=== PATIENT | male | born 1945 | race Caucasian/White ===

== ENCOUNTER 2019-04-13 18:19 | Observation (INO) ==
[2019-04-13] MEDS ORDERED: ASPIRIN PO ONE (18:55)
--- NOTE | 2019-04-13 19:16 | Diag Imaging Result Doc PS360 ---
EXAM: CHEST-2 VIEWS - 04/13/2019 HISTORY: SOB TECHNIQUE: Chest two views COMPARISON: None. FINDINGS: There are artifacts from motion on the lateral view. Heart size appears mildly enlarged. There is mild prominence of central vascular markings. There is no dense consolidation, pleural effusion, or pneumothorax identified. IMPRESSION: Cardiomegaly with mild central vascular congestion. No discrete pneumonia. Electronically signed by Keyon Zavala 04/13/2019 7:14 PM
[2019-04-13 20:03] LABS: INR 1.22; PROTIME 15.6 Seconds (11.0-16.0)
[2019-04-13 20:04] LABS: PTT 27.4 Seconds (22.3-41.8)
[2019-04-13 20:20] LABS: BASO# 0.02 X1000 (0.0-0.2); BASO% 0.1 % (0.0-0.8); EOS# 0.02 X1000 (0.0-0.7); EOS% 0.1 % (0.0-10.0); HEMATOCRIT 41.9 % (42.0-52.0); HEMOGLOBIN 14.4 g/dL (14.0-18.0); LYMPH# 1.63 X1000 (1.2-3.4); LYMPH% 4.9 % (20.5-51.1); MCH 30.3 PG (27-31); MCHC 34.4 g/dL (33-37); MCV 88.2 FL (81-99); MONO# 3.36 X1000 (0.11-0.59); MONO% 10.1 % (1.7-9.3); MPV 9.5 FL (7.4-10.4); NEUT# 28.13 X1000 (1.4-6.5); NEUT% 84.8 % (42.2-75.2); PLT 243 X1000 (130-400); RBC 4.75 XMIL (4.7-6.1); RDW 14.3 % (11.5-14.5); WBC 33.16 X1000 (4.8-10.8)
[2019-04-13 20:29] LABS: ALB/GLOB RATIO 1.3; ALBUMIN 3.7 g/dL (3.5-5.0); CALCIUM 8.3 mg/dL (8.8-10.2); CREATININE 1.8 mg/dL (0.7-1.2); POTASSIUM 4.2 mmol/L (3.5-5.1); TOTAL BILIRUBIN 0.53 mg/dL (0.20-1.00); TOTAL PROTEIN 6.5 g/dL (6.3-8.3)
--- NOTE | 2019-04-13 20:47 | EKG Report ---
Test Performed on : 04/13/2019 7:15:33 PM Test Reason : SOB Blood Pressure : / mmHG Vent. Rate : 094 BPM Atrial Rate : 094 BPM P-R Int : 196 ms QRS Dur : 104 ms QT Int : 352 ms P-R-T Axes : 049 012 041 degrees QTc Int : 440 ms Normal sinus rhythm. with sinus arrhythmia. Normal ECG When compared with ECG of 03-APR-2019 10:14, [place] interval has decreased Unconfirmed Result
[2019-04-13 20:50] LABS: BANDS 6 % (0-1); LYMPHS 6 % (21-51); MONO 3 % (1-9); SEGS 82 % (42-75)
[2019-04-13 20:51] LABS: HYPOCHROM 1+
[2019-04-13 20:53] LABS: CK INDEX 2.9 (0.0-2.5); CK-MB 16.1 ng/mL (0.0-5.0)
[2019-04-13 21:30] LABS: URINE SOURCE CATH
[2019-04-13 21:33] LABS: BILIRUBIN URINE NEGATIVE (NEGATIVE); BLOOD URINE MODERATE (NEGATIVE); COLOR YELLOW; GLUCOSE URINE NEGATIVE (NEGATIVE); KETONE URINE NEGATIVE (NEGATIVE); LEUKOCYTES URINE MODERATE (NEGATIVE); NITRITE URINE POSITIVE (NEGATIVE); PROTEIN URINE TRACE mg/dL (NEGATIVE); TURBIDITY URINE HAZY (CLEAR); UR EPITHELIAL CELLS <10 /HPF (<10); URINE BACTERIA NEGATIVE /HPF; URINE RBC TNTC /HPF (<10); UROBILINOGEN URINE NORMAL (NORMAL)
[2019-04-13] MEDS ORDERED: LEVAQUIN 500 MG/D5W 500 MG/100 ML IVPB IV ONE (21:40)
[2019-04-13] MEDS ORDERED: ROCEPHIN 1 GM in NS 50 ML IV ONE (22:01)
--- NOTE | 2019-04-13 22:03 | PROVIDER DOCUMENTATION ---
This chart was entered by Haylie Herrera Scribe, acting as scribe for Rayshawn Little MD. HPI-Respiratory General - General Chief Complaint: Shortness of Breath Stated Complaint: DEHYDRATED, WHEEZING, SOB (POST-OP) Time Seen by Provider: 04/13/19 19:39 Source: patient Allergies/Adverse Reactions: Patient Allergies Allergy/AdvReac Type Severity Reaction Status Date / Time No Known Allergies Allergy Verified 04/11/19 10:05 Home Medications: Home Medication List Medication Instructions Recorded Confirmed Last Taken Type Cyanocobalamin (Vitamin B-12) 1,000 mcg PO QAM 09/24/17 04/11/19 04/10/19 History [Vitamin B-12] Metformin [Glucophage] 1 tab PO QAM 09/24/17 04/11/19 04/10/19 History Omeprazole 40 mg PO BID 09/24/17 04/11/19 04/10/19 History Tramadol HCl 50 mg PO DIRECTED 09/24/17 04/11/19 04/10/19 History Trazodone [Desyrel] 100 mg PO QHS 09/24/17 04/11/19 04/10/19 History Furosemide 20 mg PO DIRECTED 04/03/19 04/11/19 04/10/19 History Lisinopril/Hydrochlorothiazide 0.5 tab PO QAM 04/03/19 04/11/19 04/10/19 History [Lisinopril-Hctz 20-12.5 mg Tab] Multivitamin with Minerals 1 ea PO QAM 04/03/19 04/11/19 04/10/19 History [Multiple Vitamin] Cephalexin [Keflex] 500 mg PO BID #6 cap 04/11/19 Unknown Rx Phenazopyridine [Pyridium] 100 mg PO TID PRN #30 tab 04/11/19 Unknown Rx Tramadol HCl [Ultram] 50 mg PO TID PRN #10 tab 04/11/19 Unknown Rx - History of Present Illness-Resp Nature of Presenting Problem: 73 yowm presents w/family to er w/cc sob, wheezing, urinary retention and urgency starting yest. pt had recent prostate sx on sunday w/ Dr. Mi, family in room sts she removed cath yest and urinary symptoms began afterward. f dario also reports that pt has been disoriented, thought living room was restroom in home. no hx chf or copd. hx dm, htn, arthritis. no allergies. pt c/o buttocks pain, had small BM today, is on painkillers and stool softeners. Severity in ED: reports: mild Onset/Duration: reports: other (yest) Timing: reports: still present Context: reports: other (recent sx) Cough Quality/Degree: reports: no cough Current Respiratory Medication Therapy: Initiated none Modifying Factors: improves with: nothing Associated Symptoms: reports: shortness of breath, wheezing Recently seen or treated by another doctor?: Yes (sx sunday ) Review of Systems - Adult - REVIEW OF SYSTEMS - ADULT Constitutional: reports: see HPI, other (disoriented). denies: chills, fever, fatique Eyes: reports: no symptoms reported Ears, Nose, Mouth & Throat: reports: no symptoms reported Cardiovascular: reports: no symptoms reported Respiratory: reports: see HPI, shortness of breath, wheezing. denies: cough, he moptysis, pleurisy Gastrointestinal: reports: no symptoms reported Genitourinary: reports: see HPI, urinary retention, urgency. denies: dysuria, discharge, frequency, hematuria Musculoskeletal: reports: see HPI, other (buttocks pain). denies: bone pain, muscle aches, neck pain Integumentary: reports: no symptoms reported Neurological: reports: no symptoms reported Psychiatric: reports: no symptoms reported Endocrine: reports: no symptoms reported Hematologic/Lymphatic: reports: no symptoms reported Allergic/Immunologic: reports: no symptoms reported All Other Systems: Reviewed and Negative Past History - Adult - PAST MEDICAL HISTORY-ADULT Review of Records: reports: Old Records Reviewed, Nursing Assessment Review, Medications Reviewed, Social history reviewed & non-contributory. Major Childhood Illnesses: reports: denies history Cardiovascular: reports: HTN. denies: CHF Respiratory: reports: denies history. denies: COPD Gastrointestinal: reports: denies history Obstetrical/Gynecological: reports: denies history Genitourinary: reports: denies history Musculoskeletal: reports: arthritis Neurological: reports: CVA Endocrine/Immune: reports: Diabetes Other Conditions: reports: denies history - PRIOR SURGERIES/PROCEDURES Surgical/Procedure History: reports: recent surgery, joint replacement (knee), other (prostate) - IMMUNIZATION STATUS Childhood Immunizations: See Nurse Assessment Flu Vaccine: See Nurse Assessment - FAMILY HISTORY Family History: reviewed, not pertinent - SOCIAL HISTORY Smoking: other (former smoker) Substance Use: none/never Physical Exam-General - PHYSICAL EXAM-ADULT Initial Vital Signs Reviewed: Yes - CONSTITUTIONAL General Appearance: alert, no apparent distress, obese. negative: cachetic, anxious, combative - EYES Eyes: PERRL/EOMI - HEAD, EARS, NOSE, MOUTH & THROAT HENMT: normocephalic/atraumatic, moist mucous membranes - NECK Neck: non-tender, full range of motion, supple, normal inspection - RESPIRATORY Respiratory: chest non-tender, normal breath sounds, no pleuratic chest pain, no respiratory distress, no accessory muscle use, rhonchi (left side), wheezing (left side). negative: lungs clear - CARDIOVASCULAR Cardiovascular: normal peripheral pulses, regular rate, rhythm - GASTROINTESTINAL (ABDOMEN) Abdominal Exam: normal bowel sounds, no organomegaly, no pulsatile mass, distended, tenderness (suprapubic, ruq on palp). negative: non tender, soft - MUSCULOSKELETAL Back Exam: normal inspection Extremity: normal range of motion, non-tender, normal inspection - SKIN Integumentary: normal color, normal turgor, warm/dry - NEUROLOGIC Neurologic: grossly normal, no motor/sensory deficits - PSYCHIATRIC Psych/Mental Status: normal mood/affect, normal thought content, normal thought process, oriented x 3, other (pt able to answer questions approprieately). negative: disoriented x 3, anxious, paranoid - HEART Score HEART Score: History: Moderately Suspicious HEART Score: ECG: Non-Specific Repolarization Disturbance/LBBB/PM HEART Score: Age: > or = 65 Years HEART Score: Risk Factors for Atherosclerotic Disease: 1 or 2 Risk Factors HEART Score: Troponin: < or = Normal Limit Total HEART Score:: 5 Progress - PLAN OF CARE/RESULTS Progress/Plan/Lab Results: Vital Signs - 8 hr 04/13/19 18:46 Temperature 99.6 F Pulse Rate 101 H Respiratory Rate 24 Blood Pressure 204/92 O2 Sat by Pulse Oximetry 94 L Laboratory Results - last 24 hr 04/13/19 04/13/19 04/13/19 19:20 19:29 19:29 WBC RBC Hgb Hct MCV MCH MCHC RDW Std Deviation Plt Count MPV Neut % (Auto) Lymph % (Auto) [place] % (Auto) Eos % (Auto) Baso % (Auto) Neut # (Auto) Lymph # (Auto) [place] # (Auto) Eos # (Auto) Baso # (Auto) Segmented Neutrophils Band Neutrophils Lymphocytes Monocytes Metamyelocytes Pathologist Review Hypochromia PT INR PTT (Actin FS) Sodium 124 L Potassium 4.2 Chloride 85 L Carbon Dioxide 20 L Anion Gap 19 BUN 31 H Creatinine 1.8 H Estimated GFR/1.73 m2 37 BUN/Creatinine Ratio 17 Glucose 184 H POC Glucose 171 H Calculated Osmolality 261 Calcium 8.3 L Total Bilirubin 0.53 AST 29 ALT 19 Alkaline Phosphatase 71 Creatine Kinase 556 H Creatine Kinase Index 2.9 H CK-MB (CK-2) 16.10 H Troponin T High Sens [id number] Pept 349 H Total Protein 6.5 Albumin 3.7 Globulin 2.8 Albumin/Globulin Ratio 1.3 Plasma Lactate Urine Source Urine Color Urine Turbidity Urine pH Ur Specific [place] Urine Protein Ur Glucose (Stick) Ur Ketones (Stick) Urine Blood Urine Nitrite Urine Bilirubin Urobilinogen Dipstick Urine Leukocytes Urine WBC (Auto) Urine RBC (Auto) U Epithel Cells (Auto) Urine Bacteria (Auto) 04/13/19 04/13/19 04/13/19 19:29 19:29 19:29 WBC 33.16 H RBC 4.75 Hgb 14.4 Hct 41.9 L MCV 88.2 MCH 30.3 MCHC 34.4 RDW Std Deviation 14.3 Plt Count 243 MPV 9.5 Neut % (Auto) 84.8 H Lymph % (Auto) 4.9 L [place] % (Auto) 10.1 H Eos % (Auto) 0.1 Baso % (Auto) 0.1 Neut # (Auto) 28.13 H Lymph # (Auto) 1.63 [place] # (Auto) 3.36 H Eos # (Auto) 0.02 Baso # (Auto) 0.02 Segmented Neutrophils 82 H Band Neutrophils 6 H Lymphocytes 6 L Monocytes 3 Metamyelocytes 3.0 Pathologist Review Hypochromia 1+ PT 15.6 INR 1.22 PTT (Actin FS) 27.4 Sodium Potassium Chloride Carbon Dioxide Anion Gap BUN Creatinine Estimated GFR/1.73 m2 BUN/Creatinine Ratio Glucose POC Glucose Calculated Osmolality Calcium Total Bilirubin AST ALT Alkaline Phosphatase Creatine Kinase Creatine Kinase Index CK-MB (CK-2) Troponin T High Sens 17 [id number] Pept Total Protein Albumin Globulin Albumin/Globulin Ratio Plasma Lactate Urine Source Urine Color Urine Turbidity Urine pH Ur Specific [place] Urine Protein Ur Glucose (Stick) Ur Ketones (Stick) Urine Blood Urine Nitrite Urine Bilirubin Urobilinogen Dipstick Urine Leukocytes Urine WBC (Auto) Urine RBC (Auto) U Epithel Cells (Auto) Urine Bacteria (Auto) 04/13/19 04/13/19 20:52 21:14 WBC RBC Hgb Hct MCV MCH MCHC RDW Std Deviation Plt Count MPV Neut % (Auto) Lymph % (Auto) [place] % (Auto) Eos % (Auto) Baso % (Auto) Neut # (Auto) Lymph # (Auto) [place] # (Auto) Eos # (Auto) Baso # (Auto) Segmented Neutrophils Band Neutrophils Lymphocytes Monocytes Metamyelocytes Pathologist Review Hypochromia PT INR PTT (Actin FS) Sodium Potassium Chloride Carbon Dioxide Anion Gap BUN Creatinine Estimated GFR/1.73 m2 BUN/Creatinine Ratio Glucose POC Glucose Calculated Osmolality Calcium Total Bilirubin AST ALT Alkaline Phosphatase Creatine Kinase Creatine Kinase Index CK-MB (CK-2) Troponin T High Sens [id number] Pept Total Protein Albumin Globulin Albumin/Globulin Ratio Plasma Lactate 1.4 Urine Source CATH Urine Color YELLOW Urine Turbidity HAZY Urine pH 6.0 Ur Specific [place] 1.010 Urine Protein TRACE A Ur Glucose (Stick) NEGATIVE Ur Ketones (Stick) NEGATIVE Urine Blood MODERATE A Urine Nitrite POSITIVE A Urine Bilirubin NEGATIVE Urobilinogen Dipstick NORMAL Urine Leukocytes MODERATE A Urine WBC (Auto) 10-20 A Urine RBC (Auto) TNTC A U Epithel Cells (Auto) <10 Urine Bacteria (Auto) NEGATIVE Orders Category Date Time Status Cardiac Monitoring DIRECTED Care 04/13/19 18:55 Active Hair Cath Insertion ORDERED Care 04/13/19 19:51 Active NEWS Score 2-4:Order NEWS Lactate Series NOW Care 04/13/19 18:54 Active Oxygen Therapy- ED Nursing DIRECTED Care 04/13/19 18:55 Active Saline Loc NOW Care 04/13/19 18:55 Active CHEST-2 VIEWS [RAD] Stat Exams 04/13/19 18:55 Completed BLOOD CULTURE [BLDCUL] Stat Lab 04/13/19 20:55 Ordered CBC WITH ELECTRONIC DIFF [HEME] Stat Lab 04/13/19 19:29 Completed CK PROFILE [SP CHEM] Stat Lab 04/13/19 19:29 Completed COMPREHENSIVE METABOLIC PANEL [CHEM] Stat Lab 04/13/19 19:29 Completed LACTATE, PLASMA [CHEM] Lab 04/13/19 20:52 Completed LACTATE, PLASMA [CHEM] Lab 04/13/19 22:00 Uncollected LACTATE, PLASMA [CHEM] Lab 04/14/19 01:00 Uncollected PRO B-NATRIURETIC PEPTIDE Stat Lab 04/13/19 19:29 Completed PROTIME WITH INR [COAG] Stat Lab 04/13/19 19:29 Completed PTT [COAG] Stat Lab 04/13/19 19:29 Completed TROPONIN T HIGH SENSITIVITY Stat Lab 04/13/19 19:29 Completed UA NIMS W/REFLEX CULT [URINALYSIS] Stat Lab 04/13/19 21:14 Completed Aspirin Med 04/13/19 18:55 Discontinued 325 mg PO NOW ONE CefTRIAXONE [Rocephin] 1 gm Med 04/13/19 22:01 Active 0.9% Sodium Chloride Inj [Ns] 50 ml IV NOW Levofloxacin 500 mg/D5w [Levaquin 500 mg/D5w] Med 04/13/19 21:40 Active 500 mg in 100 ml IV NOW CP/SOB/Palp >45 yrs of Age Stat Oth 04/13/19 18:55 Ordered EKG [EKG] Stat Ther 04/13/19 18:55 Draft Result Diagrams: 04/13/19 19:29 04/13/19 19:29 - EKG 1 Time of EKG reading by physician:: 19:15 EKG Read and Signed by:: Rayshawn Little EKG Interpretation (*Must complete 3 of following elements*): Normal Rate: 94 Rhythm: NSR w/ SA [place]: normal QRS: normal VT Interval: normal ST Wave: normal - XRAY 1 XRAY Study: Chest Impression: Abnormal, See EMR Report ( EXAM: CHEST-2 VIEWS - 04/13/2019 HISTORY: SOB TECHNIQUE: Chest two views COMPARISON: None. FINDINGS: There are artifacts from motion on the lateral view. Heart size appears mildly enlarged. There is mild prominence of central vascular markings. There is no dense consolidation, pleural effusion, or pneumothorax identified. IMPRESSION: C ardiomegaly with mild central vascular congestion. No discrete pneumonia. Electronically signed by Keyon Zavala 04/13/2019 7:14 PM 04/13/19 191 Interpreting Physician: Keyon Zavala MD Dictated Date/Time: 04/13/191911) Comparison with other Films: no prior study - CONSULTS/PCP/HOSPITALIST Notification #1 *Consult/PCP/Hospitalist*: Dr. Rubio Time Discussed: 21:45 Consult Disposition: other (refer to urologist.) #2 Consult: Dr. Watts Time Discussed: 21:52 Consult Disposition: Admit Departure - Departure Date of Disposition Decision: 04/13/19 Time of Disposition Decision: 21:58 DIAGNOSIS: Hyponatremia, Urinary retention, Leukocytosis, UTI (urinary tract infection), Renal insufficiency Disposition: ADMITTED INPATIENT 09 Certified Medical Emergency: Emergent Condition: Fair Referrals and Follow-Ups: Gunner Donato MD [Primary Care Provider] - - Critical Care Note This patient required my direct & personal management of CC.: No Attestation - Physician/ ALESSANDRA Attestation Patient care was provided by Advanced Practice Provider:: No The physician spent face to face time with patient:: Yes Advanced Practice Provider documentation review:: Supervising physician onsite and consulted in the evaluation and care of this patient. The physician did have a face to face encounter with the patient. This chart was documented by the indicated scribe, (Haylie Herrera, Maggie) and accurately reflects the services I performed and decisions made by me, Rayshawn Little MD, as attested by the provider's signature.
[2019-04-13] MEDS ORDERED: ZOFRAN IV PRN (23:22)
[2019-04-14] MEDS: NS 1,000 ML IV SCH ×3 (00:05→20:25)
[2019-04-14] MEDS: INVANZ 1 GM/NS 1 GM/50 ML IVPB IV SCH ×2 (00:05→23:08)
--- NOTE | 2019-04-14 01:08 | HISTORY AND PHYSICAL ---
PRIMARY CARE PHYSICIAN: Unknown. CHIEF COMPLAINT: Suprapubic pain, not feeling well. HISTORY OF PRESENTING ILLNESS: A 73-year-old male with a history of diabetes mellitus type 2, hypertension, who recently underwent laser prostate surgery last week and was sent home with Hair, presented to emergency department with complaint of worsening suprapubic pain. As per patient, his took out his Hair this Sunday and after that he was unable to urinate. He is brought to the emergency department. His case was discussed with Urology, who recommended reinserting the Hair and also treatment for his UTI. Due to his presenting symptoms, he will require admission for further management. At the time of my examination, patient denied any headache, fever, chills, chest pain, shortness of breath or weight changes, but complained of suprapubic pain and unable to urinate. PAST MEDICAL HISTORY: Includes diabetes mellitus type 2, hypertension. PAST SURGICAL HISTORY: Left knee replacement, appendectomy, cataract surgery, and recent prostate surgery. ALLERGIES: No known drug allergies. CURRENT MEDICATIONS: Include Lasix 20 mg p.o. daily, lisinopril/hydrochlorothiazide 20/12.5 one p.o. daily, multivitamins 1 tablet daily, omeprazole 40 mg p.o. daily, trazodone 100 mg p.o. at bedtime, metformin 500 mg p.o. daily. SOCIAL HISTORY: He is a former smoker. No history of alcohol or illicit drug use. FAMILY HISTORY: No history of coronary artery disease. REVIEW OF SYSTEMS: Fourteen point review of systems is as listed in HPI. Other systems negative. PHYSICAL EXAMINATION: GENERAL: Cooperative, friendly male. He is resting more comfortably now. VITAL SIGNS: Temperature 99.6 degrees, pulse 101, respirations 24, blood pressure 204/92, repeat was 157/84. HEENT: Atraumatic, normocephalic. Extraocular movements intact. PERRLA. NECK: No masses. CHEST: Clear to auscultation. CARDIOVASCULAR: Regular rate and rhythm. ABDOMEN: Soft. Positive bowel sounds. EXTREMITIES: No edema. NEUROLOGIC: He is awake, alert, oriented x3. GENITOURINARY: There is some bladder distention. SKIN: Warm. LABORATORIES AND STUDIES: WBCs 33.16, hemoglobin 14.4, hematocrit 41.9, platelets 243,000. Sodium 124, potassium 4.2, chloride 85, CO2 is 20, BUN is 31, creatinine is 1.8, glucose is 184. Chest x-ray, no discrete pneumonia. ASSESSMENT: A 73-year-old male with a history of diabetes mellitus type 2 and hypertension, who had presented to emergency department with complaining of difficulty voiding. He recently underwent a prostate surgery and had his Hair catheter taken out on Sunday. He developed difficulty urinating and subsequently had come to the emergency department. In the ED, he was evaluated. A Hair catheter was inserted and he was started on IV antibiotics and he need admission for further management. 1. Acute urinary retention. 2. Complicated urinary tract infection. 3. Acute kidney injury. 4. Hyponatremia. 5. Diabetes mellitus type 2. 6. Hypertension. PLAN: 1. We will admit patient to medical floor with telemetry. 2. Continue with Hair catheter. 3. Consult Urology. 4. We will check urine cultures. Start patient on IV antibiotics. 5. We will continue with IV fluids and monitor renal function. 6. We will monitor blood glucose and put patient on sliding scale insulin regimen. 7. Monitor blood pressure. Resume antihypertensive agent. 8. We will check his electrolytes. 9. We will put patient on DVT prophylaxis with SCD. 10. We will continue to follow, reassess and make further recommendation based on patient's clinical course. cc: Eben Rubio MD
[2019-04-14] MEDS: HUMULIN R SUBQ SCH ×4 (06:33→20:25)
--- NOTE | 2019-04-14 07:58 | CONSULTATION ---
DATE OF CONSULTATION: 04/14/2019 CHIEF COMPLAINT: Suprapubic pain and urinary retention. HISTORY OF PRESENT ILLNESS: Mr. Max is a 73-year-old with history of diabetes type 2, hypertension, CVA, and BPH who underwent GreenLight laser resection of the prostate on Sunday with Dr. Donato. The patient's Hair catheter was removed on Sunday at home. The patient had difficulty with urination and presented to ED last night complaining of shortness of breath and worsening suprapubic pain. Catheter was removed on Sunday, and he states that he only was able to void a very small amount. As his pain worsened, he presented to the hospital for evaluation. The patient had obvious suprapubic distention, and catheter inserted with over 1500 mL of urine drained. Urology was consulted at that time, and recommended admission due to elevated white blood cell count at 33,000. Urinalysis showed blood and leukocytes with no bacteria present. The patient's creatinine was elevated at 1.8. This morning the patient denies any fevers, chills, nausea, or vomiting. He feels like his shortness of breath has significantly improved. Denies any suprapubic tenderness. Urethral catheter has been draining well with clear yellow urine. Overall, patient feels well and is asking about going home. PAST MEDICAL HISTORY: 1. Type 2 diabetes. 2. Hypertension. 3. Osteoarthritis. 4. History of CVA. 5. BPH. PAST SURGICAL HISTORY: 1. Left knee replacement. 2. Appendectomy. 3. Cataract surgery. 4. GreenLight resection of prostate. ALLERGIES: No known drug allergies. MEDICATIONS: 1. Keflex 500 mg p.o. b.i.d. 2. Vitamin B12 1000 mcg p.o. in the morning. 3. Lasix 20 mg p.o. as needed. 4. Lisinopril/hydrochlorothiazide 20/12.5 mg take half tablet in the morning. 5. Metformin 1 tablet in the morning. 6. Multivitamin. 7. Omeprazole 40 mg b.i.d. 8. Pyridium 100 mg t.i.d. 9. Tramadol 50 mg p.o. 10. Trazodone 100 mg p.o. SOCIAL HISTORY: He is a former smoker. Denies any alcohol or illicit drug use. FAMILY HISTORY: Denies family history of malignancy. REVIEW OF SYSTEMS: A 12 point review of systems performed with all pertinent positives and negatives in HPI. PHYSICAL EXAMINATION: Vital Signs: Temperature 97.6, heart rate 83, blood pressure 125/53, and oxygen saturation 96% on room air. General: No acute distress. Resting comfortably in bed. Alert and oriented x3. HEENT: Normocephalic, atraumatic. Pupils equal, round, and reactive to light. Poor dentition. Neck: Trachea midline with no obvious masses. Respiratory: Good respiratory effort without audible wheezing or rales. Cardiovascular: Regular rate and rhythm. Abdomen: Soft and nontender. : No suprapubic tenderness. No CVA tenderness. Urethral catheter in place draining clear yellow urine. Normal phallus with orthotopic meatus. Skin: No obvious skin lesions or rashes. Musculoskeletal: Moving all extremities. LABORATORY: White blood cell count in the emergency room last night was 33.2, hemoglobin 14.4, hematocrit 41.9, and platelets 243,000. Sodium 124, potassium 4.2, chloride 85, bicarb 20, BUN 31, creatinine 1.8, glucose 184, and creatine kinase 556. Creatinine count index is elevated at 2.9 with a CK-MB of 16.1. Urinalysis shows moderate amount of blood, and 10 to 20 of white blood cells that is nitrite positive, patient states he is on Pyridium, urinalysis was negative for bacteria. ASSESSMENT AND PLAN: Mr. Max is a 73-year-old with history of BPH, hypertension, type 2 diabetes, osteoarthritis, and prior CVA, who presents in consultation regarding urinary retention postoperatively. Patient underwent a GreenLight laser of the prostate by Dr. Donato on Sunday of last week, and has had issues with retention after catheter removed by his . Catheter was reinserted in the ED last night and is draining clear, yellow urine. Denies any flank or abdominal pain today. The catheter has drained over 4.5 L of urine so far, which is clear yellow without any clots or sediment. We will keep indwelling catheter in at this time. I would follow up his morning blood work. His white blood count was significantly elevated on presentation and seems out of proportion to a urinary tract infection alone. Uncertain what led to this as he has not had any fevers or chills. His urinalysis showed no bacteria. He has been on Keflex postoperatively. We will continue to monitor urine cultures. Please call with questions or concerns. cc: Mainor Watts MD [facility]
[2019-04-14 08:54] LABS: BASO# 0.02 X1000 (0.0-0.2); BASO% 0.1 % (0.0-0.8); EOS# 0.17 X1000 (0.0-0.7); EOS% 0.7 % (0.0-10.0); HEMATOCRIT 39.6 % (42.0-52.0); HEMOGLOBIN 13.2 g/dL (14.0-18.0); IMM GRAN# 0.18 X1000 (0.0-0.04); IMM GRAN% 0.8 % (0.0-0.5); LYMPH# 1.85 X1000 (1.2-3.4); LYMPH% 7.7 % (20.5-51.1); MCH 30.1 PG (27-31); MCHC 33.3 g/dL (33-37); MCV 90.2 FL (81-99); MONO# 2.63 X1000 (0.11-0.59); MPV 9.1 FL (7.4-10.4); NEUT# 19.15 X1000 (1.4-6.5); NEUT% 79.7 % (42.2-75.2); PLT 235 X1000 (130-400); RBC 4.39 XMIL (4.7-6.1); RDW 14.2 % (11.5-14.5)
[2019-04-14 09:02] LABS: AGAP 10; BUN 24 mg/dL (8-22); CALCIUM 9.3 mg/dL (8.8-10.2); CHLORIDE 99 mmol/L (98-107); COSMO 284; CREATININE 1.1 mg/dL (0.7-1.2); ESTIMATED GFR > 60; GLUCOSE 114 mg/dL (70-104); POTASSIUM 4.5 mmol/L (3.5-5.1); SODIUM 140 mmol/L (136-145); TCO2 31 mmol/L (25-35)
[2019-04-14 09:18] LABS: BANDS 4 % (0-1); LYMPHS 4 % (21-51); MONO 8 % (1-9); SEGS 82 % (42-75)
[2019-04-14] MEDS: TYLENOL PO PRN ×2 (15:52→23:07)
--- NOTE | 2019-04-14 18:22 | PROGRESS NOTE ---
DATE: 04/14/2019 SUBJECTIVE: Mr. Max came in with suprapubic pain, not feeling well. He is a patient of Dr. Donato's. A 73-year-old with a history of diabetes mellitus type 2, hypertension, recently underwent laser prostate surgery last week, was sent home with Hair catheter. Presented to the emergency department with complaint of worsening suprapubic pain. As per patient and his , took out his Hair catheter Sunday after he had been unable to urinate. He was brought to the emergency room. His case was discussed with Urology. It was recommended to reinsert the Hair and treatment for urinary tract infection. So he was admitted to the hospital. He states he is feeling better. He wanted know if he could get the catheter out. I told him that it is probably going to need to be a decision Urology makes. He is feeling better, quite a bit better. OBJECTIVE: Vital signs: Temp 98.5 degrees, pulse 88, respirations 19, blood pressure 131/89. HEENT: Pupils are equal and round. Lungs: Clear in all lung pearl. Cardiovascular: Regular rhythm and rate without murmur or S3. Abdomen: Soft. Skin: Warm and dry. Urine output is 7200 mL. ASSESSMENT AND PLAN: A 73-year-old with a history of benign prostatic hypertrophy, hypertension, diabetes mellitus, osteoarthritis, and prior cerebrovascular accident. He had some urinary retention on presentation postoperatively. Underwent GreenLight laser of the prostate per Dr. Donato on Sunday of last week. Had issues with retention after Hair catheter was removed. Catheter was reinserted and draining clear urine. Denies any flank pain. He has put out quite a bit of urine. This is clear without any clots. Blood count was significantly elevated, so treating for urinary tract infection. CURRENT ORDERS: He is getting ertapenem 1 g IV q.24 hours and Zofran p.r.n. nausea, normal saline at 100 mL an hour. cc: Emerson Pulido MD
[2019-04-15] MEDS: HUMULIN R SUBQ SCH ×4 (06:28→22:58)
[2019-04-15] MEDS: TYLENOL PO PRN ×3 (06:43→23:07)
[2019-04-15] MEDS ORDERED: PYRIDIUM PO PRN (11:25)
[2019-04-15 12:23] LABS: BASO# 0.05 X1000 (0.0-0.2); BASO% 0.2 % (0.0-0.8); EOS# 0.07 X1000 (0.0-0.7); EOS% 0.3 % (0.0-10.0); HEMATOCRIT 43.1 % (42.0-52.0); HEMOGLOBIN 14.1 g/dL (14.0-18.0); IMM GRAN# 0.25 X1000 (0.0-0.04); LYMPH# 2.76 X1000 (1.2-3.4); LYMPH% 11.4 % (20.5-51.1); MCH 29.6 PG (27-31); MCHC 32.7 g/dL (33-37); MCV 90.5 FL (81-99); MONO# 2.59 X1000 (0.11-0.59); MONO% 10.7 % (1.7-9.3); MPV 9.1 FL (7.4-10.4); NEUT# 18.45 X1000 (1.4-6.5); NEUT% 76.4 % (42.2-75.2); PLT 260 X1000 (130-400); RBC 4.76 XMIL (4.7-6.1); RDW 14.3 % (11.5-14.5); WBC 24.17 X1000 (4.8-10.8)
[2019-04-15 12:34] LABS: AGAP 14; BUN 16 mg/dL (8-22); CHLORIDE 97 mmol/L (98-107); COSMO 274; CREATININE 0.7 mg/dL (0.7-1.2); ESTIMATED GFR > 60; GLUCOSE 114 mg/dL (70-104); POTASSIUM 3.9 mmol/L (3.5-5.1); SODIUM 136 mmol/L (136-145); TCO2 25 mmol/L (25-35)
[2019-04-15 12:50] LABS: LYMPHS 11 % (21-51); MONO 8 % (1-9); SEGS 81 % (42-75)
[2019-04-15 12:51] LABS: ANISOCYTOSIS 2+; HYPOCHROM 2+; POIKILOCYTOSIS 1+
[2019-04-15] MEDS: APRESOLINE PO SCH (16:11)
--- NOTE | 2019-04-15 16:51 | PROGRESS NOTE ---
DATE: 04/15/2019 SUBJECTIVE: The patient seems to be feeling better. The Hair catheter has been removed today. He seems to be making more urine, but his white blood cell count is still elevated at 24 even though he is not having fever, chills. His vital signs are stable, and actually I checked back his previous lab work, and last month his white blood cell count was close to 14 and in 2018 was 15.1. I will ask the lodging facilities attendant/oncologist to evaluate this patient just to make sure that he does not have an underlying disease. On the other hand, his blood pressure has been elevated. I will put him on hydralazine to see how he does. OBJECTIVE: Vital Signs: Temperature 97.7 degrees, pulse 75, respiratory rate 20, blood pressure 171/58, oxygen saturation 98% on room air. HEENT: Head normocephalic, no trauma. PERRLA. Neck: Supple. No JVD. No masses. Central trachea. Chest: Clear to auscultation. No wheezing. No rales. Abdomen: Soft, protuberant. Positive bowel sounds. Extremities: No edema, no clubbing, no cyanosis. Neurological: Patient is awake, alert. He is following commands. No focal deficits. LABORATORY: WBC 24.1, hemoglobin 14.1, hematocrit of 43.1, platelets 260,000. Sodium 136, potassium 3.9, chloride 97, bicarbonate 25, BUN 16, creatinine 0.7 glucose 114, calcium 9. ASSESSMENT AND PLAN: 1. GreenLight laser of the prostate last Sunday of last week, and subsequently he had urinary retention on presentation postoperatively. Apparently, he went home, and the Hair catheter was removed, but he was not able to void. A new catheter has been placed during this hospitalization and removed today, and he seems to be voiding better. I think he is getting better. We will continue to monitor. 2. Leukocytosis. This patient's blood culture and urine culture are negative. His vital signs are stable except for hypertension. No fever, no chills, and he is feeling fine. I cannot explain this elevation of the white blood cell count. I will ask the lodging facilities attendant/oncologist to evaluate this patient. 3. History of benign prostatic hypertrophy, as per number 1. 4. Hypertension. I will add hydralazine to his medications since he came in with acute kidney injury and he has been on lisinopril and hydrochlorothiazide. 5. Hyponatremia, resolved. 6. Acute kidney injury, resolved. 7. Osteoarthritis. We will monitor. 8. History of cerebrovascular accident. Aware. Overall, this patient is doing better. It looks like he is voiding now. His kidney function is normal again. The only issue is his white blood cell count, which I will recheck in the morning, and I will ask hematology/oncology department to evaluate this patient since this seems to be chronic. I just want to rule out any underlying problem. cc: Magan Bradley MD
[2019-04-15] MEDS ORDERED: DESYREL PO SCH (21:00)
[2019-04-15] MEDS: PRILOSEC PO SCH (22:57)
[2019-04-15] MEDS: INVANZ 1 GM/NS 1 GM/50 ML IVPB IV SCH (23:07)
[2019-04-15] MEDS ORDERED: ATIVAN IV ONE (23:58)
[2019-04-16] MEDS: HUMULIN R SUBQ SCH ×2 (06:16→11:24)
--- NOTE | 2019-04-16 07:39 | PROGRESS NOTE ---
DATE: 04/16/2019 SUBJECTIVE: Mr. Max had a good day and night after having the catheter removed. He has voided multiple times. He feels that he emptying to completion. He states he is ready to go home. He was observed overnight secondary to elevated red blood cell count. OBJECTIVE: Temperature 98.5, pulse 75, blood pressure 184/76. General: No acute distress. Abdomen: Soft, nontender, and nondistended. Genitourinary: Bladder is nontender to palpation. PERTINENT LABORATORY DATA: None this morning yet. ASSESSMENT: A 73-year-old male, status post GreenLight transurethral vaporization of the prostate who re-presented to the emergency room with retention. He did not have clot retention. He did not have urinary tract infection. He does report having severe constipation and has had close to 8 bowel movements shortly after admission. He feels much better now and states it is easier for him to void. I told him that likely the stress of surgery and possibly being impacted might have caused him to go into retention. He wants to be discharged if okay with Dr. Parker. PLAN: 1. Clear for discharge from a urologic standpoint. 2. I will plan on seeing him in 4 weeks for a postoperative check as previously planned. 3. Please call if questions. cc: Gunner Donato MD
[2019-04-16] MEDS: PRILOSEC PO SCH (08:52)
[2019-04-16] MEDS: APRESOLINE PO SCH (08:52)
[2019-04-16] MEDS ORDERED: VITAMIN B-12 PO SCH (09:00)
[2019-04-16] MEDS ORDERED: THERA M PLUS PO SCH (09:00)
[2019-04-16 09:04] LABS: AGAP 13; BUN 13 mg/dL (8-22); CALCIUM 9.1 mg/dL (8.8-10.2); CHLORIDE 98 mmol/L (98-107); COSMO 278; CREATININE 0.6 mg/dL (0.7-1.2); ESTIMATED GFR > 60; GLUCOSE 177 mg/dL (70-104); PHOSPHORUS 3.6 mg/dL (2.7-4.5); POTASSIUM 3.9 mmol/L (3.5-5.1); SODIUM 137 mmol/L (136-145); TCO2 26 mmol/L (25-35)
[2019-04-16 09:07] LABS: BASO# 0.03 X1000 (0.0-0.2); BASO% 0.2 % (0.0-0.8); EOS# 0.19 X1000 (0.0-0.7); HEMATOCRIT 42.9 % (42.0-52.0); HEMOGLOBIN 14.4 g/dL (14.0-18.0); LYMPH# 1.88 X1000 (1.2-3.4); LYMPH% 9.9 % (20.5-51.1); MCH 30.5 PG (27-31); MCHC 33.6 g/dL (33-37); MCV 90.9 FL (81-99); MONO# 1.38 X1000 (0.11-0.59); MONO% 7.2 % (1.7-9.3); MPV 9.5 FL (7.4-10.4); NEUT# 15.59 X1000 (1.4-6.5); NEUT% 81.7 % (42.2-75.2); PLT 258 X1000 (130-400); RBC 4.72 XMIL (4.7-6.1); RDW 14.4 % (11.5-14.5); WBC 19.07 X1000 (4.8-10.8)
[2019-04-16] MEDS ORDERED: PRINZIDE 20/12.5MG PO SCH (09:30)
[2019-04-16 11:11] LABS: BANDS 8 % (0-1); LYMPHS 10 % (21-51); MONO 4 % (1-9); SEGS 78 % (42-75)
[2019-04-16 11:21] LABS: C REACTIVE PROT QUANT 62.88 mg/L (0.00-5.00)
[2019-04-16] MEDS: TYLENOL PO PRN (13:30)
[2019-04-16 13:54] VITALS: BP 178/71
--- NOTE | 2019-04-16 15:05 | HEMO/ONC CONSULTATION ---
DATE: 04/16/2019 REASON FOR CONSULTATION: Leukocytosis. HISTORY OF PRESENT ILLNESS: This is a 73-year-old, male who recently underwent laser prostate surgery last Sunday and went home with a Hair catheter. He presented to the emergency department on 04/13/2019 with complaints of worsening suprapubic pain. The patient took out his Hair on Sunday after he was unable to urinate. Per urology, the Hair was reinserted in the ER and was admitted for treatment of UTI. The patient denied any other symptoms and was admitted for further workup. PAST MEDICAL HISTORY: Hypertension, diabetes type 2, and BPH. PAST SURGICAL HISTORY: Left knee replacement, appendectomy, cataract surgery, prostate surgery. SOCIAL HISTORY: He is a former smoker. He denies alcohol or illicit drug use. ALLERGIES: No known drug allergies. CURRENT MEDICATIONS: Lasix, lisinopril/hydrochlorothiazide, multivitamin, omeprazole, trazodone, and metformin. REVIEW OF SYSTEMS: The patient has no complaints today. All ROS negative. PHYSICAL EXAMINATION: Vital Signs: Temperature 98.2 degrees, pulse rate 72, respiratory rate 22, blood pressure 178/71, O2 saturation 97% on room air. He is in 0/10 pain. Physical Examination: General: The patient is comfortable and in no acute distress. HEENT: Sclerae are anicteric. PERRLA. Oral mucosa normal. Cardiovascular: Normal S1, S2. Heart rate and rhythm regular. Respiratory: Lung sounds are clear to auscultation. Normal respiratory effort. Abdomen: Protuberant, soft, nontender. Positive bowel sounds. Extremities: No lower extremity edema noted. Neurological: Alert and oriented x3. No focal motor deficits noted. LABORATORY: WBCs 19.07, hemoglobin 14.4, hematocrit 42.9, platelet count 258,000, ANC 15.59. ESR 41, LDH 334, C-reactive protein 62.88. ASSESSMENT AND PLAN: 1. Leukocytosis. In review of the patient's labs and history, this appears to be reactive and inflammatory. It appears to be decreasing. We will follow up with the patient in 2 weeks to recheck. 2. Acute urinary retention with urinary tract infection. The patient was treated. His Hair catheter was removed. The patient is able to void at this time. He is followed closely with urology. DISPOSITION: We understand the patient is ready to go home at this time. He is adamant about going home today. It is okay from our standpoint. We will follow up with the patient in the office in approximately 1-2 weeks. Dictated by SARAH Huerta for Puneet Virgen MD As above. WBC trending down. May be reactive Check labs and review blood smear. Will follow with you. Puneet Virgen MD cc: Puneet Virgen MD [facility]
--- NOTE | 2019-04-17 09:35 | DISCHARGE SUMMARY ---
ADMISSION DATE: 04/13/2019 DISCHARGE DATE: 04/16/2019 DISCHARGE DIAGNOSES: 1. Green-light laser of the prostate last Sunday and with a postoperative complication of urinary retention, resolved. 2. Leukocytosis. This is likely reactive and/or inflammatory and/or infectious, Hematology Oncology evaluated this patient. They will follow this leukocyte count as an outpatient. 3. History of benign prostatic hypertrophy. 4. Hypertension. 5. Hyponatremia, resolved. 6. Acute kidney injury, resolved. 7. Osteoarthritis, will monitor. 8. History of cerebrovascular accident. Aware. PROCEDURES PERFORMED: Chest x-ray dated 04/13/2019. Impression" cardiomegaly with mild central vascular congestion. No pneumonia. CONSULT: Urology Department Dr. Mainor Watts, Dr. Donato and Hematology Oncology Department Dr. Virgen. HOSPITAL COURSE: A 73-year-old male with a past medical history of diabetes, hypertension. He recently underwent a laser prostate surgery last week, I believe on Sunday and was sent home with a Hair that was removed. He presented to the emergency department with worsening suprapubic pain and was admitted on 04/13/2019. As per the patient, his took the Hair out this Sunday and he was unable to urinate. The case was discussed with Urology, who recommended to reinsert the Hair catheter and also start treatment for his UTI. Due to his symptoms, he required admission for further management. It looks like the leukocyte count at this time was out of proportion for just urinary tract infection, but he was not complaining of any other symptoms. Urology Department evaluated this patient multiple times and actually after a few days, the Hair catheter was removed and he was able to void again. The white blood cell count actually has been decreasing from compared with admission that was 33.1 and then decreased to 24 and then 24, then 19 today. Because of these I have requested an evaluation by Hematology/Oncology Department. This leukocyte count probably is reactive and/or inflammatory or probably related also to a urinary tract infection, but the urine culture has been negative as well as the blood culture, but I will continue with antibiotics anyway. Urology Department evaluated this patient today. They are okay to send this patient home and they will follow up this patient as an outpatient. Also Hematology/Oncology Department will follow this patient after completing treatment with antibiotics. Patient seems to understand and he will be discharged home. He was tolerating p.o., ambulating, no pain, no fever, no chills. No nausea, no vomiting. OBJECTIVE: Vital Signs: Temperature 98.2 degrees, pulse 72, respiratory rate 22, blood pressure 178/71, oxygen saturation 97% on room air. HEENT: Head normocephalic. No trauma. PERRLA. Neck: Supple. No JVD. No masses. Central trachea. Chest: Clear to auscultation. No wheezing. No rales. Abdomen: Soft, nontender, nondistended. No hepatosplenomegaly. Extremities: No edema, no clubbing, no cyanosis. Neurological: The patient is alert, awake, and oriented x3. No focal deficits. LABORATORY: WBC 19, hemoglobin 14.4, hematocrit 42.9, platelet 258,000. Sodium 137, potassium 3.9, chloride 98, bicarbonate 26, BUN 13, creatinine 0.6, glucose 177, calcium 9.1, phosphorus 3.6, magnesium 2. LDH 334. CRP 62. DISCHARGE MEDICATIONS: 1. Vitamin B12 1000 mcg p.o. q.a.m. 2. Furosemide 20 mg p.o. Sunday and Sunday. 3. Levofloxacin 750 mg p.o. daily. 4. Lisinopril hydrochlorothiazide 20/12.5 mg tablet, 0.5 tablets p.o. q.a.m. 5. Metformin 500 mg p.o. q.a.m. 6. Multivitamin 1 tablet p.o. q.a.m. 7. Omeprazole 40 mg p.o. b.i.d. 8. Pyridium 100 mg p.o. t.i.d. as needed. 9. Tramadol 50 mg p.o. as directed, which is his home medication, apparently 3 tablets in the a.m., 3 in the afternoon and 2 at night. 10. Trazodone 100 mg p.o. at bedtime. Again this patient will follow up with Dr. Donato and Dr. Virgen as an outpatient and he will need to call for an appointment. This has been explained to the patient and the family members at the bedside. cc: Magan Bradley MD
== END 2019-04-16 14:55 | disposition home health service (06) ==
LOC: ED 18:19 → 3N 22:15 → OPS 22:42 → DIRADM 22:42 → SUATTDRO 22:42 → 3N 22:42
PROVIDERS: ADMIT Internal Medicine; ATTEND Emergency Medicine